=== PATIENT | female | born 1995 | race Caucasian/White ===

== ENCOUNTER → 2020-08-10 | Outpatient (CLI) | payer OTHER ==
[~2020-08-10] MED LIST: CALC-817 PO; CEPH500C PO; DCS100C PO; DIPH50CA PO; FRS325T PO; HYDR-3714 PO; IBUP-1773 PO; PREN1TAB71 PO
--- NOTE | 2020-08-10 13:03 | Diagnostic Imaging Report ---
INDICATION: Wrist pain COMPARISON: None available. TECHNIQUE: Four radiographs of the left wrist dated August 10, 2020. FINDINGS: No acute fracture or dislocation. No destructive osseous process. Joint spaces are well-maintained. Carpal alignment is well-maintained. No suspicious radiopaque foreign body. IMPRESSION: Unremarkable examination without acute osseous abnormality. Dictated by: Dictated on workstation # [id number]
== END ==
LOC: LAB FS 10:50
PROVIDERS: ATTEND Nurse Practitioner
DX: M25.532 Pain in left wrist (principal)
CPT/HCPCS: 73110